=== PATIENT | female | born 1960 | race Caucasian/White ===

== ENCOUNTER 2020-06-14 06:06 | Observation (INO) ==
[2020-06-14] MEDS ORDERED: Ibuprofen 800 MG TABLET PO ONE (06:40)
[2020-06-14 08:00] LABS: Activated Partial Thrombo Time 23.8 Seconds (26.0-36.0)
[2020-06-14 08:15] LABS: BUN/Creatinine Ratio 18 (6-26); Blood Urea Nitrogen 14 mg/dL (8-23); Calcium 9.2 mg/dL (8.6-10.3); Carbon Dioxide 25 mEq/L (23-29); Chloride 106 mEq/L (98-107); Glucose 122 mg/dL (70-105); Osmolality,Calculated 288 (280-300); Potassium 3.5 mEq/L (3.5-5.1); Sodium 138 mEq/L (136-145); Troponin I < 0.03 ng/mL (< 0.04); eGFR For African Americans > 60 (> 60); eGFR For Non-African Americans > 60 (> 60)
[2020-06-14 08:19] LABS: Basophils % 0.3 %; Eosinophils # 0.1 K/mcL (0.0-0.6); Eosinophils % 0.6 %; Hematocrit 42.1 % (35.3-44.9); Hemoglobin 13.3 g/dL (11.5-15.4); Immature Granulocytes % 0.3 % (0-4); Mean Corpuscular HGB Conc 31.6 g/dL (31.6-35.5); Mean Corpuscular Volume 91.9 fL (83.0-100.0); Monocytes # 0.7 K/mcL (0.0-1.3); Monocytes % 6.3 %; Neutrophils # 9.6 K/mcL (1.6-8.9); Platelet Count 294 K/mcL (140-400); Red Blood Count 4.58 M/mcL (3.82-4.97); Red Cell Distribution Width 14.2 % (11.5-14.5); Segmented Neutrophils % 83.5 %; White Blood Count 11.4 K/mcL (4.3-11.1)
[2020-06-14] MEDS ORDERED: Naloxone 0.4 MG/ML INJ IVP PRN (10:11)
[2020-06-14] MEDS ORDERED: Perflutren Lipid Microsphere 1.3 ML in 0.9 % Sodium Chloride 8.7 ML IVP PRN (10:12)
[2020-06-14 10:38] LABS: Magnesium 2.2 mg/dL (1.6-2.6)
[2020-06-14] MEDS: 0.9 % Sodium Chloride 1,000 ML IVC SCH (10:54)
[2020-06-14 11:06] LABS: Thyroid Stimulating Hormone 2.616 mcIU/mL (0.340-5.600)
[2020-06-14 11:25] LABS: Amorphous Sediment,Urine Few per hpf (None-Few); Bilirubin,Urine Negative (Negative); Blood,Urine Negative (Negative); Clarity,Urine Turbid (Clear); Color,Urine Yellow (Yellow); Glucose,Urine (UA) Normal (Normal); Hyaline Casts,Urine Few per lpf (None Seen); Ketones,Urine Negative (Negative); Leukocyte Esterase,Urine Negative (Negative); Mucus,Urine Moderate per lpf (None-Few); Nitrite,Urine Negative (Negative); Protein,Urine Trace mg/dL (Neg-Trace); Specific Gravity,Urine 1.017 (1.010-1.025); Squamous Epithelial Cell,Urine Moderate per hpf (None-Few); Urobilinogen,Urine Normal (Normal)
[2020-06-14 11:36] LABS: Estimated Average Glucose 120 mg/dl
[2020-06-14] MEDS ORDERED: polyethylene glycoL 3350 17 GM POWD.PACK PO SCH (13:30)
[2020-06-14] MEDS: Ketorolac 30 MG/ML VIAL IVP PRN ×2 (15:54→22:38)
[2020-06-14] MEDS: *HR* Heparin 5,000 UNIT/ML VIAL SQ SCH (17:45)
[2020-06-14] MEDS ORDERED: Melatonin 3 MG TABLET PO SCH (21:00)
[2020-06-15] MEDS: 0.9 % Sodium Chloride 1,000 ML IVC SCH (03:03)
[2020-06-15 04:08] LABS: Basophils % 0.6 %; Eosinophils # 0.3 K/mcL (0.0-0.6); Eosinophils % 4.4 %; Hematocrit 37.8 % (35.3-44.9); Hemoglobin 12.1 g/dL (11.5-15.4); Immature Granulocytes % 0.1 % (0-4); Lymphocytes % 29.2 %; Mean Corpuscular Hemoglobin 29.1 pg (28.0-33.3); Mean Corpuscular Volume 90.9 fL (83.0-100.0); Mean Platelet Volume 9.8 fL (9.4-12.4); Monocytes # 0.7 K/mcL (0.0-1.3); Monocytes % 9.3 %; Neutrophils # 3.9 K/mcL (1.6-8.9); Platelet Count 252 K/mcL (140-400); Red Blood Count 4.16 M/mcL (3.82-4.97); Red Cell Distribution Width 14.2 % (11.5-14.5); Segmented Neutrophils % 56.4 %
[2020-06-15] MEDS: *HR* Heparin 5,000 UNIT/ML VIAL SQ SCH (05:58)
[2020-06-15] MEDS: Ketorolac 30 MG/ML VIAL IVP PRN (07:30)
[2020-06-15] MEDS ORDERED: Cyanocobalamin (B-12) 1,000 MCG TABLET PO SCH (09:00)
[2020-06-15] MEDS ORDERED: tiZANidine 4 MG TABLET PO SCH (09:00)
[2020-06-15] MEDS ORDERED: Aspirin Enteric Coated 81 MG Tablet PO SCH (09:00)
[2020-06-15] MEDS ORDERED: Cholecalciferol (D-3) 1,000 UNIT (25MCG) TABLET PO SCH (09:00)
[2020-06-15 10:24] VITALS: BP 143/81
== END 2020-06-15 12:58 | disposition home or self-care (01) ==
LOC: CDU 06:06 → EMEROOARM 06:06 → SUATTDRO 10:46 → CDU 10:49
PROVIDERS: ADMIT Internal Medicine; ATTEND Internal Medicine

== ENCOUNTER 2020-06-23 06:03 | Inpatient (IN) ==
[2020-06-23] MEDS ORDERED: Ketorolac 30 MG/ML VIAL IVP ONE (06:25)
[2020-06-23] MEDS ORDERED: cefOXitin 2,000 MG in Water for inj. (sterile) 20 ML IVP ONE (06:25)
[2020-06-23] MEDS ORDERED: Ringers Solution, Lactated 1,000 ML IVC SCH (06:30)
[2020-06-23] MEDS ORDERED: *HR* FentaNYL (PF) 100 MCG/2 ML VIAL ONE (07:14)
[2020-06-23] MEDS ORDERED: *HR* Propofol 200 MG/20 ML VIAL IVP ONE (07:14)
[2020-06-23] MEDS ORDERED: Lidocaine/EPI 1:100k 1% 50 ML VIAL ONE (07:17)
[2020-06-23] MEDS ORDERED: Gentamicin 80 MG/2 ML VIAL ONE (07:17)
[2020-06-23] MEDS ORDERED: *HR* Succinylcholine 200 MG/10 ML VIAL IVP ONE ×2 (07:18→11:30)
[2020-06-23] MEDS ORDERED: Dexamethasone 4 MG/ML VIAL ONE (07:18)
[2020-06-23] MEDS ORDERED: *HR* Rocuronium Bromide 50 MG/5 ML VIAL ONE (07:18)
[2020-06-23] MEDS ORDERED: Lidocaine -MPF 2% 2 ML VIAL ONE (07:18)
[2020-06-23] MEDS ORDERED: Ondansetron 4 MG/2 ML VIAL ONE (07:18)
[2020-06-23] MEDS ORDERED: Lidocaine HCL 4 ML Topical Solution (Laryng-O-Jet Kit Sterile Pak) TP ONE (07:18)
[2020-06-23] MEDS ORDERED: *HR* HYDROmorphone (PF) 1 MG/ML SYRINGE IVP PRN ×2 (07:45→10:59)
[2020-06-23] MEDS ORDERED: Pregabalin 75 MG CAPSULE PO ONE (07:45)
[2020-06-23] MEDS ORDERED: Scopolamine Patch 1.5 MG PATCH.TD72 TD ONE (07:45)
[2020-06-23] MEDS ORDERED: *HR* OxyCODONE Immed Rel 5 MG TABLET PO PRN (07:45)
[2020-06-23] MEDS ORDERED: Famotidine 20 MG/2 ML VIAL IVP ONE (07:45)
[2020-06-23] MEDS ORDERED: Promethazine 6.25 MG in Water for inj. (sterile) 20 ML IVPB PRN (07:45)
[2020-06-23] MEDS ORDERED: Acetaminophen IV 1,000 MG/100 ML INFUS..BTL IVPB ONE (07:45)
[2020-06-23] MEDS ORDERED: *HR* Labetalol 20 MG/4 ML SYRINGE IVP PRN (07:45)
[2020-06-23] MEDS ORDERED: *HR* HYDROmorphone 2 MG TABLET PO PRN (07:45)
[2020-06-23] MEDS ORDERED: ceFAZolin 1,000 MG, Sodium Chloride IRRigation 1,000 ML IR ONE (07:45)
[2020-06-23] MEDS ORDERED: EPHEDrine 50 MG/ML VIAL ONE (08:04)
[2020-06-23] MEDS ORDERED: *HR* PHENYLEPHRINE 1,000 MCG/10 ML SYRINGE IVP ONE (08:48)
[2020-06-23] MEDS ORDERED: *HR* OxyCODONE/APAP 5/325 TABLET PO PRN (10:56)
[2020-06-23] MEDS ORDERED: Naloxone 0.4 MG/ML INJ IVP PRN (10:56)
[2020-06-23] MEDS ORDERED: Ondansetron 4 MG/2 ML VIAL IVP PRN (10:56)
[2020-06-23] MEDS ORDERED: Ketorolac 30 MG/ML VIAL ONE (10:58)
[2020-06-23] MEDS: Ringers Solution, Lactated 1,000 ML IVC SCH ×2 (12:05→16:56)
[2020-06-23] MEDS: Ketorolac 15 MG/ML VIAL IVP SCH ×2 (13:07→19:32)
[2020-06-23] MEDS: ceFAZolin 1,000 MG in Water for inj. (sterile) 10 ML IVP SCH (16:56)
[2020-06-24] MEDS: ceFAZolin 1,000 MG in Water for inj. (sterile) 10 ML IVP SCH ×2 (00:14→08:22)
[2020-06-24] MEDS: Ketorolac 15 MG/ML VIAL IVP SCH ×2 (00:15→05:30)
[2020-06-24] MEDS: Ringers Solution, Lactated 1,000 ML IVC SCH (00:17)
[2020-06-24 06:54] LABS: Basophils % 0.1 %; Hematocrit 27.6 % (35.3-44.9); Hemoglobin 8.8 g/dL (11.5-15.4); Immature Granulocytes % 0.3 % (0-4); Lymphocytes # 1.1 K/mcL (0.6-4.6); Lymphocytes % 10.1 %; Mean Corpuscular HGB Conc 31.9 g/dL (31.6-35.5); Mean Corpuscular Hemoglobin 29.2 pg (28.0-33.3); Mean Corpuscular Volume 91.7 fL (83.0-100.0); Mean Platelet Volume 9.9 fL (9.4-12.4); Monocytes # 1.2 K/mcL (0.0-1.3); Monocytes % 10.8 %; Neutrophils # 8.6 K/mcL (1.6-8.9); Platelet Count 271 K/mcL (140-400); Red Blood Count 3.01 M/mcL (3.82-4.97); Segmented Neutrophils % 78.7 %
[2020-06-24 07:16] LABS: eGFR For African Americans > 60 (> 60); eGFR For Non-African Americans > 60 (> 60)
[2020-06-24 07:46] VITALS: BP 97/56
== END 2020-06-24 10:15 | disposition home or self-care (01) | DRG 748 ==
LOC: SAMDAY 06:03 → 1NENUPED 12:53
PROVIDERS: ADMIT Obstetrics & Gynecology; ATTEND Obstetrics & Gynecology

== ENCOUNTER 2020-06-27 23:33 | Inpatient (IN) ==
[2020-06-28] MEDS ORDERED: Ondansetron 4 MG/2 ML VIAL IVP ONE ×2 (02:25→23:47)
[2020-06-28] MEDS ORDERED: 0.9 % Sodium Chloride 1,000 ML IVC ONE (02:25)
[2020-06-28] MEDS ORDERED: *HR* FentaNYL (PF) 100 MCG/2 ML VIAL IVP ONE (02:25)
[2020-06-28 02:55] LABS: Basophils % 0.3 %; Eosinophils # 0.2 K/mcL (0.0-0.6); Eosinophils % 2.4 %; Hematocrit 31.3 % (35.3-44.9); Immature Granulocytes % 0.3 % (0-4); Lymphocytes # 1.7 K/mcL (0.6-4.6); Lymphocytes % 18.7 %; Mean Corpuscular HGB Conc 31.9 g/dL (31.6-35.5); Mean Corpuscular Hemoglobin 28.7 pg (28.0-33.3); Mean Corpuscular Volume 89.7 fL (83.0-100.0); Mean Platelet Volume 9.6 fL (9.4-12.4); Monocytes # 1.1 K/mcL (0.0-1.3); Platelet Count 403 K/mcL (140-400); Red Blood Count 3.49 M/mcL (3.82-4.97); Red Cell Distribution Width 14.3 % (11.5-14.5); Segmented Neutrophils % 66.3 %; White Blood Count 9.1 K/mcL (4.3-11.1)
[2020-06-28 03:12] LABS: BUN/Creatinine Ratio 14 (6-26); Blood Urea Nitrogen 9 mg/dL (8-23); Calcium 8.7 mg/dL (8.6-10.3); Carbon Dioxide 27 mEq/L (23-29); Chloride 97 mEq/L (98-107); Glucose 112 mg/dL (70-105); Osmolality,Calculated 279 (280-300); Potassium 2.7 mEq/L (3.5-5.1); Sodium 135 mEq/L (136-145); eGFR For African Americans > 60 (> 60); eGFR For Non-African Americans > 60 (> 60)
[2020-06-28 03:15] LABS: Bilirubin,Urine Negative (Negative); Blood,Urine Trace-intact (Negative); Clarity,Urine Clear (Clear); Color,Urine Yellow (Yellow); Glucose,Urine (UA) Normal (Normal); Ketones,Urine 15 mg/dL (Negative); Leukocyte Esterase,Urine Negative (Negative); Nitrite,Urine Negative (Negative); Protein,Urine Negative (Neg-Trace); Specific Gravity,Urine 1.015 (1.010-1.025); Urobilinogen,Urine Normal (Normal); WBC,Urine 0-3 per hpf (0-3)
[2020-06-28] MEDS ORDERED: Potassium Chloride 40 MEQ, Lidocaine 1% 2 ML in D5% in Water 500 ML IVPB ONE (04:21)
[2020-06-28] MEDS ORDERED: Naloxone 0.4 MG/ML INJ IVP PRN (04:58)
[2020-06-28] MEDS ORDERED: *HR* OxyCODONE/APAP 5/325 TABLET PO PRN ×2 (04:59→16:46)
[2020-06-28 06:03] LABS: Alanine Aminotransferase 19 Units/L (7-52); Albumin 3.5 g/dL (3.5-5.7); Albumin/Globulin Ratio 1.2 (1.1-2.2); Alkaline Phosphatase 88 Units/L (34-104); Aspartate Amino Transferase 26 Units/L (13-39); Bilirubin,Direct 0.4 mg/dL (0.0-0.2); Bilirubin,Indirect 1.1 mg/dL (0.0-1.0); Bilirubin,Total 1.5 mg/dL (0.3-1.0); Globulin 2.9 g/dL (2.4-3.5); Lipase 4 Units/L (11-82); Total Protein 6.4 g/dL (6.4-8.9)
[2020-06-28] MEDS: cephALEXin 500 MG CAPSULE PO SCH ×2 (06:14→23:39)
[2020-06-28] MEDS: 0.9 % Sodium Chloride w KCl 20 MEQ/1,000 ML MLS IVC SCH ×2 (06:16→16:31)
[2020-06-28] MEDS: *HR* Promethazine 25 MG/ML VIAL IM PRN ×3 (09:41→22:35)
[2020-06-28 11:32] LABS: Hematocrit 27.1 % (35.3-44.9); Hemoglobin 8.8 g/dL (11.5-15.4)
[2020-06-28] MEDS ORDERED: 0.9 % Sodium Chloride 1,000 ML IVC SCH (13:30)
[2020-06-28 16:45] LABS: Hemoglobin 9.6 g/dL (11.5-15.4)
[2020-06-28] MEDS ORDERED: Melatonin 3 MG TABLET PO SCH (21:00)
[2020-06-28] MEDS ORDERED: traZODone 50 MG TABLET PO SCH (21:00)
[2020-06-28] MEDS ORDERED: Ondansetron 4 MG/2 ML VIAL ONE (23:50)
[2020-06-29] MEDS ORDERED: Metoclopramide 10 MG/2 ML VIAL IVP ONE (01:23)
[2020-06-29 02:27] LABS: Basophils % 0.3 %; Eosinophils # 0.2 K/mcL (0.0-0.6); Eosinophils % 2.5 %; Hematocrit 28.6 % (35.3-44.9); Hemoglobin 9.3 g/dL (11.5-15.4); Immature Granulocytes % 0.3 % (0-4); Lymphocytes # 1.1 K/mcL (0.6-4.6); Lymphocytes % 12.2 %; Mean Corpuscular HGB Conc 32.5 g/dL (31.6-35.5); Mean Corpuscular Volume 89.1 fL (83.0-100.0); Mean Platelet Volume 9.1 fL (9.4-12.4); Monocytes # 1.1 K/mcL (0.0-1.3); Monocytes % 12.5 %; Neutrophils # 6.3 K/mcL (1.6-8.9); Platelet Count 408 K/mcL (140-400); Red Blood Count 3.21 M/mcL (3.82-4.97); Red Cell Distribution Width 14.7 % (11.5-14.5); Segmented Neutrophils % 72.2 %; White Blood Count 8.8 K/mcL (4.3-11.1)
[2020-06-29 02:45] LABS: BUN/Creatinine Ratio 14 (6-26); Blood Urea Nitrogen 7 mg/dL (8-23); Calcium 8.2 mg/dL (8.6-10.3); Carbon Dioxide 27 mEq/L (23-29); Chloride 103 mEq/L (98-107); Glucose 125 mg/dL (70-105); Osmolality,Calculated 285 (280-300); Potassium 3.3 mEq/L (3.5-5.1); Sodium 138 mEq/L (136-145); eGFR For African Americans > 60 (> 60); eGFR For Non-African Americans > 60 (> 60)
[2020-06-29] MEDS: Ampicillin/Sulbactam 3,000 MG in 0.9 % Sodium Chloride Mini Bag 100 ML IVPB SCH ×4 (04:36→23:25)
[2020-06-29] MEDS ORDERED: Potassium Chloride 40 MEQ, Lidocaine 1% 2 ML in 0.9 % Sodium Chloride 500 ML IVPB ONE (05:04)
[2020-06-29] MEDS: cephALEXin 500 MG CAPSULE PO SCH (09:03)
[2020-06-29] MEDS ORDERED: Metoclopramide 10 MG/2 ML VIAL IVP PRN (12:48)
[2020-06-29] MEDS ORDERED: Ketorolac 15 MG/ML VIAL IVP PRN (12:57)
[2020-06-29] MEDS ORDERED: 0.9 % Sodium Chloride 1,000 ML IVC SCH (13:00)
[2020-06-29 18:40] LABS: Adenovirus Not Detected (Not Detect); Coronavirus 229E Not Detected (Not Detect); Coronavirus HKU1 Not Detected (Not Detect); Coronavirus NL63 Not Detected (Not Detect); Coronavirus OC43 Not Detected (Not Detect); Human Metapneumovirus Not Detected (Not Detect); Human Rhinovirus/Enterovirus Not Detected (Not Detect); Influenza A Subtype 2009 H1 Not Detected (Not Detect); Influenza B Not Detected (Not Detect); SARS-CoV-2 Not Detected (Not Detect)
[2020-06-29 18:41] LABS: Bordetella Pertussis Not Detected (Not Detect); Chlamydophila pneumoniae Not Detected (Not Detect); Mycoplasma pneumoniae Not Detected (Not Detect); Parainfluenza Virus 1 Not Detected (Not Detect); Parainfluenza Virus 2 Not Detected (Not Detect); Parainfluenza Virus 3 Not Detected (Not Detect); Parainfluenza Virus 4 Not Detected (Not Detect); Respiratory Syncytial Virus Not Detected (Not Detect)
[2020-06-30 01:56] LABS: Basophils % 0.5 %; Eosinophils # 0.2 K/mcL (0.0-0.6); Eosinophils % 3.5 %; Hematocrit 28.1 % (35.3-44.9); Hemoglobin 8.6 g/dL (11.5-15.4); Immature Granulocytes % 0.3 % (0-4); Lymphocytes # 1.3 K/mcL (0.6-4.6); Lymphocytes % 21.8 %; Mean Corpuscular HGB Conc 30.6 g/dL (31.6-35.5); Mean Corpuscular Hemoglobin 28.9 pg (28.0-33.3); Mean Corpuscular Volume 94.3 fL (83.0-100.0); Mean Platelet Volume 9.4 fL (9.4-12.4); Monocytes # 0.9 K/mcL (0.0-1.3); Monocytes % 14.5 %; Neutrophils # 3.6 K/mcL (1.6-8.9); Nucleated Red Blood Cells 0.3 /100 WBC (0); Platelet Count 384 K/mcL (140-400); Red Blood Count 2.98 M/mcL (3.82-4.97); Red Cell Distribution Width 14.8 % (11.5-14.5); Segmented Neutrophils % 59.4 %
[2020-06-30 02:42] LABS: BUN/Creatinine Ratio 29 (6-26); Blood Urea Nitrogen 14 mg/dL (8-23); Calcium 7.7 mg/dL (8.6-10.3); Carbon Dioxide 24 mEq/L (23-29); Chloride 109 mEq/L (98-107); Glucose 96 mg/dL (70-105); Osmolality,Calculated 292 (280-300); Potassium 3.5 mEq/L (3.5-5.1); Sodium 141 mEq/L (136-145); eGFR For African Americans > 60 (> 60); eGFR For Non-African Americans > 60 (> 60)
[2020-06-30] MEDS: Ampicillin/Sulbactam 3,000 MG in 0.9 % Sodium Chloride Mini Bag 100 ML IVPB SCH ×4 (04:10→21:25)
[2020-06-30] MEDS ORDERED: Potassium Chloride Elixir 20 MEQ/15 ML UDC PO ONE (08:51)
[2020-06-30] MEDS: Calcium Gluconate 1gm/50mL 1 GM/50 ML BAG IVPB SCH ×2 (09:26→10:18)
[2020-06-30] MEDS: 0.45 % Sodium Chloride w/KCl 20 MEQ/1,000 ML MLS IVC SCH ×2 (10:18→21:23)
[2020-07-01] MEDS: Ampicillin/Sulbactam 3,000 MG in 0.9 % Sodium Chloride Mini Bag 100 ML IVPB SCH ×4 (03:08→20:19)
[2020-07-01 05:13] LABS: Hematocrit 29.1 % (35.3-44.9); Hemoglobin 9.1 g/dL (11.5-15.4); Mean Corpuscular HGB Conc 31.3 g/dL (31.6-35.5); Mean Corpuscular Hemoglobin 29.1 pg (28.0-33.3); Mean Platelet Volume 9.3 fL (9.4-12.4); Platelet Count 409 K/mcL (140-400); Red Blood Count 3.13 M/mcL (3.82-4.97); Red Cell Distribution Width 14.7 % (11.5-14.5); White Blood Count 6.3 K/mcL (4.3-11.1)
[2020-07-01 05:40] LABS: BUN/Creatinine Ratio 30 (6-26); Blood Urea Nitrogen 14 mg/dL (8-23); Calcium 7.9 mg/dL (8.6-10.3); Carbon Dioxide 19 mEq/L (23-29); Chloride 105 mEq/L (98-107); Glucose 70 mg/dL (70-105); Magnesium 1.9 mg/dL (1.6-2.6); Osmolality,Calculated 283 (280-300); Potassium 3.8 mEq/L (3.5-5.1); Sodium 137 mEq/L (136-145); eGFR For African Americans > 60 (> 60); eGFR For Non-African Americans > 60 (> 60)
[2020-07-01] MEDS: 0.45 % Sodium Chloride w/KCl 20 MEQ/1,000 ML MLS IVC SCH (19:47)
[2020-07-02] MEDS: Ampicillin/Sulbactam 3,000 MG in 0.9 % Sodium Chloride Mini Bag 100 ML IVPB SCH ×4 (03:44→21:47)
[2020-07-02 06:20] LABS: Hematocrit 31.1 % (35.3-44.9); Hemoglobin 9.9 g/dL (11.5-15.4); Mean Corpuscular HGB Conc 31.8 g/dL (31.6-35.5); Mean Corpuscular Hemoglobin 29.3 pg (28.0-33.3); Mean Platelet Volume 9.4 fL (9.4-12.4); Platelet Count 480 K/mcL (140-400); Red Blood Count 3.38 M/mcL (3.82-4.97); Red Cell Distribution Width 14.8 % (11.5-14.5); White Blood Count 8.5 K/mcL (4.3-11.1)
[2020-07-02 06:55] LABS: BUN/Creatinine Ratio 18 (6-26); Blood Urea Nitrogen 9 mg/dL (8-23); Calcium 8.3 mg/dL (8.6-10.3); Carbon Dioxide 20 mEq/L (23-29); Chloride 101 mEq/L (98-107); Glucose 98 mg/dL (70-105); Osmolality,Calculated 279 (280-300); Potassium 2.9 mEq/L (3.5-5.1); Sodium 135 mEq/L (136-145); eGFR For African Americans > 60 (> 60); eGFR For Non-African Americans > 60 (> 60)
[2020-07-02] MEDS: 0.45 % Sodium Chloride w/KCl 20 MEQ/1,000 ML MLS IVC SCH (08:36)
[2020-07-03] MEDS: 0.45 % Sodium Chloride w/KCl 20 MEQ/1,000 ML MLS IVC SCH ×3 (00:50→16:20)
[2020-07-03] MEDS ORDERED: 0.9 % Sodium Chloride Mini Bag 100 ML ONE (03:28)
[2020-07-03] MEDS: Ampicillin/Sulbactam 3,000 MG in 0.9 % Sodium Chloride Mini Bag 100 ML IVPB SCH ×2 (03:30→08:57)
[2020-07-03 05:45] LABS: BUN/Creatinine Ratio 23 (6-26); Blood Urea Nitrogen 15 mg/dL (8-23); Calcium 8.8 mg/dL (8.6-10.3); Carbon Dioxide 23 mEq/L (23-29); Chloride 102 mEq/L (98-107); Glucose 105 mg/dL (70-105); Magnesium 2.2 mg/dL (1.6-2.6); Osmolality,Calculated 291 (280-300); Potassium 3.1 mEq/L (3.5-5.1); Sodium 140 mEq/L (136-145); eGFR For African Americans > 60 (> 60); eGFR For Non-African Americans > 60 (> 60)
[2020-07-03] MEDS ORDERED: Potassium Chloride 40 MEQ, Lidocaine 1% 2 ML in 0.9 % Sodium Chloride 500 ML IVPB ONE (09:45)
[2020-07-03] MEDS: Metoclopramide 10 MG/2 ML VIAL IVP SCH ×3 (10:45→20:25)
[2020-07-03] MEDS ORDERED: Metoclopramide 10 MG/2 ML VIAL IVP SCH (12:00)
[2020-07-04] MEDS: 0.45 % Sodium Chloride w/KCl 20 MEQ/1,000 ML MLS IVC SCH (01:32)
[2020-07-04 07:48] LABS: BUN/Creatinine Ratio 24 (6-26); Blood Urea Nitrogen 13 mg/dL (8-23); Calcium 8.2 mg/dL (8.6-10.3); Carbon Dioxide 25 mEq/L (23-29); Chloride 104 mEq/L (98-107); Glucose 114 mg/dL (70-105); Osmolality,Calculated 281 (280-300); Potassium 3.5 mEq/L (3.5-5.1); Sodium 135 mEq/L (136-145); eGFR For African Americans > 60 (> 60); eGFR For Non-African Americans > 60 (> 60)
[2020-07-04] MEDS: Metoclopramide 10 MG/2 ML VIAL IVP SCH ×3 (07:57→20:34)
[2020-07-05 06:23] LABS: Hematocrit 31.5 % (35.3-44.9); Mean Corpuscular HGB Conc 31.7 g/dL (31.6-35.5); Mean Corpuscular Hemoglobin 28.4 pg (28.0-33.3); Mean Corpuscular Volume 89.5 fL (83.0-100.0); Mean Platelet Volume 9.6 fL (9.4-12.4); Platelet Count 481 K/mcL (140-400); Red Blood Count 3.52 M/mcL (3.82-4.97); Red Cell Distribution Width 15.1 % (11.5-14.5); White Blood Count 8.7 K/mcL (4.3-11.1)
[2020-07-05 06:44] LABS: BUN/Creatinine Ratio 11 (6-26); Blood Urea Nitrogen 6 mg/dL (8-23); Carbon Dioxide 25 mEq/L (23-29); Chloride 102 mEq/L (98-107); Potassium 3.2 mEq/L (3.5-5.1); Sodium 137 mEq/L (136-145); eGFR For African Americans > 60 (> 60)
[2020-07-05 06:45] LABS: Calcium 9.1 mg/dL (8.6-10.3); Glucose 111 mg/dL (70-105); Osmolality,Calculated 282 (280-300); eGFR For Non-African Americans > 60 (> 60)
[2020-07-05 07:48] VITALS: BP 109/73
[2020-07-05] MEDS: Metoclopramide 10 MG/2 ML VIAL IVP SCH (09:18)
== END 2020-07-05 10:43 | disposition home or self-care (01) | DRG 393 ==
LOC: 3BNU 23:33 → EMEROOARM 23:33 → 3BNU 06-28 05:40
PROVIDERS: ADMIT Internal Medicine; ATTEND Internal Medicine